=== PATIENT | female | born 1940 | race Caucasian/White ===

== ENCOUNTER 2018-04-08 14:33 | Emergency (ER) | payer MEDICARE ==
[~2018-04-08] VITALS: Ht 152.4 cm; Wt 67.3 kg
[~2018-04-08 14:33] MED LIST: ASPI-1265 PO; ATOR40TA71 PO; CHOL100046 PO; CLON0.1T PO; CYAN-19 PO; FERR325T39 PO; HYDR12.55 PO; LEVO125T PO; MAGNESIUM-ZINC PO; METF500T7 PO; OMEG10007 PO; OMEP20CA10 PO; TRAM50TA2 PO; VENL75TA4 PO; [UNRECOGNIZED DRUG - CODE] PO; [UNRECOGNIZED DRUG - CODE] PO
[2018-04-08] MEDS ORDERED: mag hydrox/Alum hydrox/simeth 30ml oral suspension PO ONE (15:00)
[2018-04-08] MEDS ORDERED: LIDOcaine Viscous 15ml cup MM ONE (15:00)
[2018-04-08] MEDS ORDERED: sucralfate 1gm/10ml UD suspension PO ONE (15:00)
[2018-04-08 15:08] LABS: BASOPHILS % (AUTO) 0.5 % (0-1); EOSINOPHILS # (AUTO) 0.1 X10'3 (0-0.9); EOSINOPHILS % (AUTO) 0.9 % (0-6); HEMATOCRIT 35.4 % (35.0-45.0); HEMOGLOBIN 11.6 g/dl (12.0-16.0); LYMPHOCYTES # (AUTO) 2.2 X10'3 (1.1-4.8); LYMPHOCYTES % (AUTO) 25.8 % (21-51); MEAN CORPUSCULAR HEMOGLOBIN 29.6 PG (27.0-31.0); MEAN CORPUSCULAR HGB CONC 32.7 % (33.0-36.5); MEAN CORPUSCULAR VOLUME 90.7 FL (78-98); MEAN PLATELET VOLUME 7.4 FL (7.4-10.4); MONOCYTES # (AUTO) 0.8 X10'3 (0-0.9); MONOCYTES % (AUTO) 9.6 % (2-12); NEUTROPHILS # (AUTO) 5.4 X10'3 (1.8-7.7); NEUTROPHILS % (AUTO) 63.2 % (42-75); PLATELET COUNT 458 X10'3 (140-440); RED CELL DISTRIBUTION WIDTH 14.1 % (11.5-14.5); WHITE BLOOD COUNT 8.5 X10'3 (4.5-11.0)
[2018-04-08 15:24] LABS: ALANINE AMINOTRANSFERASE 25 U/L (12-78); ALBUMIN 3.4 G/DL (3.4-5.0); ALKALINE PHOSPHATASE 78 IU/L (46-116); ANION GAP 10 (8-16); ASPARTATE AMINO TRANSFERASE 16 U/L (10-37); BILIRUBIN,TOTAL 0.3 MG/DL (0.1-1.0); BLOOD UREA NITROGEN 27 MG/DL (7-18); BUN/CREATININE RATIO 26.5 (6.6-38.0); CALCIUM 8.5 MG/DL (8.5-10.1); CHLORIDE 102 MMOL/L (99-107); CREATININE 1.02 MG/DL (0.40-0.90); GLUCOSE 209 MG/DL (70-104); SODIUM 137 MMOL/L (135-145); TOTAL CARBON DIOXIDE 25.4 MMOL/L (24-32); TOTAL PROTEIN 6.9 G/DL (6.4-8.2); eGFR 53 ML/MIN
[2018-04-08] MEDS ORDERED: SUCR1ORA12 PO (15:51)
[2018-04-08 16:08] VITALS: BP 117/95
== END 2018-04-08 16:12 | disposition home or self-care (01) ==
LOC: ER 14:34
DX: R10.13 Epigastric pain (principal); R13.10 Dysphagia, unspecified; K22.2 Esophageal obstruction; E78.00 Pure hypercholesterolemia, unspecified; I10 Essential (primary) hypertension; Z90.710 Acquired absence of both cervix and uterus; Z98.51 Tubal ligation status; Z98.890 Other specified postprocedural states; Z88.1 Allergy status to other antibiotic agents; Z79.82 Long term (current) use of aspirin; Z79.899 Other long term (current) drug therapy
CPT/HCPCS: 36415; 71045; 80053; 84484; 85025; 93005; 99285

== ENCOUNTER 2019-04-09 13:54 | Emergency (ER) | payer MEDICARE ==
[~2019-04-09] VITALS: Ht 149.9 cm; Wt 70.5 kg
[~2019-04-09 13:54] MED LIST changes: +CALC-1233 PO; -CYAN-19 PO; +CYAN100019 PO; +METF500T20 PO; -METF500T7 PO; -OMEP20CA10 PO; +OMEP20CA11 PO; +SUCR1ORA12 PO; -[UNRECOGNIZED DRUG - CODE] PO
[2019-04-09 13:59] VITALS: BP 134/95
[2019-04-09] MEDS ORDERED: PRED20TA PO (15:11)
[2019-04-09] MEDS ORDERED: ALBU6.7H9 INH (15:11)
== END 2019-04-09 15:24 | disposition home or self-care (01) ==
LOC: ER 13:56
DX: J45.909 Unspecified asthma, uncomplicated (principal); E78.00 Pure hypercholesterolemia, unspecified; I10 Essential (primary) hypertension; F32.9 Major depressive disorder, single episode, unspecified; Z86.2 Personal history of diseases of the blood and blood-forming organs and certain disorders involving the immune mechanism; Z90.710 Acquired absence of both cervix and uterus; Z98.51 Tubal ligation status; Z98.890 Other specified postprocedural states; Z88.1 Allergy status to other antibiotic agents; Z79.82 Long term (current) use of aspirin; Z79.84 Long term (current) use of oral hypoglycemic drugs; Z79.899 Other long term (current) drug therapy
CPT/HCPCS: 99283

== ENCOUNTER 2019-12-16 14:30 | Emergency (ER) | payer MEDICARE ==
[~2019-12-16] VITALS: Ht 149.9 cm; Wt 68.2 kg
[~2019-12-16 14:30] MED LIST changes: +ALBU6.7H9 INH; -CALC-1233 PO; +METF-900 PO; -METF500T20 PO; -OMEP20CA11 PO; +OMEP20CA15 PO; +[UNRECOGNIZED DRUG - CODE] PO
[2019-12-16] MEDS ORDERED: LEVO137T24 PO (15:37)
[2019-12-16] MEDS ORDERED: MAGN500T9 PO (15:37)
[2019-12-16] MEDS ORDERED: CHLO25TA10 PO (15:37)
[2019-12-16] MEDS ORDERED: LISI-600 PO (15:37)
[2019-12-16] MEDS ORDERED: CALC-854 PO (15:37)
[2019-12-16] MEDS ORDERED: ASCO-134 PO (15:37)
[2019-12-16] MEDS ORDERED: CHOL20004 PO (15:37)
[2019-12-16] MEDS ORDERED: LACT1CAP65 PO (15:37)
[2019-12-16] MEDS ORDERED: FERR240T5 PO (15:37)
[2019-12-16] MEDS ORDERED: naproxen 500mg tablet PO ONE (15:45)
[2019-12-16 16:03] VITALS: BP 131/84
== END 2019-12-16 16:05 | disposition home or self-care (01) ==
LOC: ER 14:30
DX: M25.552 Pain in left hip (principal); E78.00 Pure hypercholesterolemia, unspecified; I10 Essential (primary) hypertension; F32.9 Major depressive disorder, single episode, unspecified; Z98.51 Tubal ligation status; Z90.710 Acquired absence of both cervix and uterus; Z98.890 Other specified postprocedural states; Z88.8 Allergy status to other drugs, medicaments and biological substances; Z79.899 Other long term (current) drug therapy
CPT/HCPCS: 72190; 99284